=== PATIENT | male | born 1935 | race Hispanic/Latino ===

== ENCOUNTER 2017-04-29 11:02 | Inpatient (IN) | payer MEDICARE, OTHER ==
[~2017-04-29] VITALS: Ht 152.4 cm; Wt 54.2 kg
--- NOTE | 2017-04-29 12:18 | Diagnostic Imaging Report ---
PROCEDURE:CHEST SINGLE (PORTABLE) TECHNIQUE:Portable AP chest INDICATION:Weakness COMPARISON:None. FINDINGS: The lungs are clear and symmetrically inflated. No pleural effusions. Normal heart size, mediastinal contour, and pulmonary vasculature. Intact skeleton. CONCLUSION: Normal chest for patient age. Dictated by: Roverto Spencer M.D. on 04/29/2017 at 12:27 Electronically approved by: Roverto Spencer M.D. on 04/29/2017 at 12:27
--- NOTE | 2017-04-29 12:32 | Diagnostic Imaging Report ---
EXAMINATION: Head and cervical spine CT without contrast. HISTORY: Status post fall, dizziness, pain COMPARISON: None. TECHNIQUE: Multidetector axial images were obtained without contrast from the foramen magnum to the vertex and through the cervical spine. The images were reconstructed using brain and bone algorithms. Thin section brain images were reformatted into coronal and sagittal planes. HEAD CT FINDINGS: Skull: Nonspecific scattered lucencies throughout the calvarium and most likely represent vascular indentations, this likely lytic lesions, if there is clinical concern for aggressive pathology consider bone scan for hardware evaluation. Parenchyma: Normal. No mass, hemorrhage or CT evidence of acute vascular insult. Brain volume: Normal for age. Ventricles: No hydrocephalus or displacement. Arteries: No density suggestive of thrombus. Dural sinuses: No abnormal density. Extra-axial spaces: No abnormal density. Foramen magnum: No mass, Chiari malformation, or basilar invagination. Sella: No obvious mass. Paranasal/mastoid sinuses: Imaged portions unremarkable. CERVICAL SPINE CT FINDINGS: Alignment:Normal alignment and lordosis. Age indeterminate likely chronic and degenerative retrolisthesis at C5-C6, anterolisthesis at C6-C7 and C7-T1. Mild distal scoliosis. Soft tissues: Normal. Vertebrae: Normal height and density. No acute fracture, infection or neoplasm. Degenerative changes: C1-C2: Mild degenerative changes without stenosis. C2-C3: Fusion of the posterior elements on the left side. No canal or foraminal stenosis. C3-C4: Facet arthrosis minimally on the left without canal or foraminal stenoses. C4-C5: Disc osteophyte compresses formation, bilateral uncovertebral and facet arthrosis. Severe right and moderate left foraminal stenosis. Mild canal stenosis.. C5-C6: Disc ossify compress formation, prominent uncovertebral and facet arthrosis worst on the left. Moderate spinal canal stenosis. Severe left and moderately severe right foraminal stenoses.. C6-C7: Bilateral facet arthrosis. Mild foraminal stenosis mainly on the left.. C7-T1: Facet arthrosis minimally on the left with grade 1 anterolisthesis. IMPRESSION: Head CT: 1. No acute posttraumatic intracranial abnormalities, particularly no hemorrhage. 2. Nonspecific lucencies in the calvarium which may represent normal vascular indentations as described. Cervical spine CT: 1. No acute fractures or dislocations. 2. Chronic degenerative changes as detail above. Note: Acute postraumatic spinal cord, vascular or ligamentous injuries cannot adequately be assessed with CT. Signed by: Dr. Grisel Odonnell M.D. on 04/29/2017 12:29 PM
[2017-04-29 13:19] LABS: BASOPHILS % 0.1 % (0.0-1.0); EOSINOPHILS % 0.2 % (0.0-6.0); HEMATOCRIT 30.2 % (38.2-49.6); HEMOGLOBIN 9.8 g/dL (14.0-18.0); LYMPHOCYTES # (AUTO) 2.9 (1.0-3.2); LYMPHOCYTES % 17.1 % (18.0-39.1); MEAN CORPUSCULAR HGB CONC 32.5 g/dL (31-35); MEAN CORPUSCULAR VOLUME 95.6 fL (81-99); MONOCYTES # (AUTO) 1.6 (0.2-0.8); MONOCYTES % 9.5 % (4.4-11.3); NEUTROPHILS # (AUTO) 12.1 (2.1-6.9); NEUTROPHILS % 71.6 % (38.7-80.0); RED BLOOD COUNT 3.16 x10e6/uL (4.3-5.7); RED CELL DISTRIBUTION WIDTH 15.6 % (11.7-14.4)
[2017-04-29] MEDS ORDERED: PREDNISONE20 MG PO (13:22)
[2017-04-29] MEDS ORDERED: BENICAR20 MG PO (13:22)
[2017-04-29] MEDS ORDERED: METFORMIN HCL500 MG PO (13:22)
[2017-04-29] MEDS ORDERED: HYDROCHLOROTHIA25 MG PO (13:22)
[2017-04-29 13:26] LABS: PLATELET COUNT 36 x10e3/uL (140-360)
[2017-04-29 13:30] LABS: INR 0.96; PROTHROMBIN TIME 13.3 seconds (11.9-14.5)
[2017-04-29 13:31] LABS: PARTIAL THROMBOPLASTIN TIME 21.5 seconds (23.8-35.5)
[2017-04-29 13:38] LABS: ALANINE AMINOTRANSFERASE 13 IU/L (0-55); ALBUMIN 2.7 g/dL (3.5-5.0); ALBUMIN/GLOBULIN RATIO 0.9 (0.8-2.0); ALKALINE PHOSPHATASE 46 IU/L (40-150); ANION GAP 13.1 mmol/L (8-16); BLOOD UREA NITROGEN 74 mg/dL (7-26); BUN/CREATININE RATIO 76 (6-25); CALCIUM 8.3 mg/dL (8.4-10.2); CARBON DIOXIDE 21 mmol/L (22-29); CHLORIDE 109 mmol/L (98-107); CREATINE KINASE 15 IU/L (30-200); CREATININE, SERUM 0.98 mg/dL (0.72-1.25); EST GLOMERULAR FILTRATION RATE > 60 ML/MIN (60-); GLUCOSE 276 mg/dL (74-118); POTASSIUM 4.1 mmol/L (3.5-5.1); SODIUM 139 mmol/L (136-145)
[2017-04-29 13:58] LABS: THYROID STIMULATING HORMONE 2.263 uIU/mL (0.350-4.940)
[2017-04-29 14:06] LABS: LYMPHOCYTES % (MANUAL) 19 % (19-48); MONOCYTES % (MANUAL) 12 % (3.4-9.0); NEUTROPHILS % (MANUAL) 69 % (40-74)
[2017-04-29 14:09] LABS: ANISOCYTOSIS SLIGHT; HYPOCHROMASIA MODERATE; PLATELET ESTIMATE MARKEDLY DECREASED; PLATELET MORPHOLOGY COMMENT NORMAL; POIKILOCYTOSIS SLIGHT; RBC MORPHOLOGY COMMENT NORMAL
[2017-04-29] MEDS ORDERED: PANTOPRAZOLE INJ 40 MG in SODIUM CHLORIDE 0.9% 50ML 50 ML IV STA (14:24)
[2017-04-29] MEDS ORDERED: PANTOPRAZOLE 40 MG 10ML VIAL IV STA (14:24)
[2017-04-29 14:40] LABS: BILIRUBIN,URINE NEGATIVE (NEGATIVE); KETONES,URINE NEGATIVE (NEGATIVE); LEUKOCYTE ESTERASE ,URINE NEGATIVE (NEGATIVE); NITRITE,URINE NEGATIVE (NEGATIVE); PROTEIN,URINE DIPSTICK NEGATIVE (NEGATIVE); URINE UROBILINOGEN 0.2 mg/dL (0.2 - 1)
[2017-04-29 14:42] LABS: CLARITY,URINE CLEAR (CLEAR); COLOR,URINE YELLOW (YELLOW)
[2017-04-29] MEDS ORDERED: SODIUM CHLORIDE 0.9% 250ML 250 ML IV ONE ×2 (14:45→19:30)
[2017-04-29] MEDS ORDERED: PANTOPRAZOLE INJ 40 MG in SODIUM CHLORIDE 0.9% 50ML 50 ML IV SCH (14:45)
--- OUTSIDE RECORDS SUMMARY | 2017-04-29 14:51 | XMS REPORT ---
Author Author [facility] Address Unknown Phone Unavailable Care Team Providers Care Commodity Trader Name Role Phone DEONDRE CHEN Unavailable Unavailable Problems This patient has no known problems. Allergies, Adverse Reactions, Alerts This patient has no known allergies or adverse reactions. Medications This patient has no known medications. Results Test Description Test Time Test Comments Text Results Atomic Results Result Comments CHEST SINGLE (PORTABLE) [place] [address] Patient Name: JUANI HANSEN MR #: [id number] : 1935 Age/Sex: 81/M Req #: [id number] Adm Physician: Ordered by: BRADEN LUTZ [employer] SUPERVISOR Report #: [id number] Location: ER Room/Bed: Procedure: [id number] DX/CHEST SINGLE (PORTABLE) Exam Date: Exam Time: REPORT STATUS: Signed PROCEDURE: CHEST SINGLE ( PORTABLE) TECHNIQUE: Portable AP chest INDICATION: Weakness COMPARISON : None. FINDINGS: The lungs are clear and symmetrically inflated. No pleural effusions. Normal heart size, mediastinal contour, and pulmonary vasculature. Intact skeleton. CONCLUSION: Normal chest for patient age. Dictated by: Shant Spencer M.D. on 04/29/2017 at 12:27 Electronically approved by: Shant Spencer M.D. on 2017 at 12:27 Dictated By: SHANT SPENCER MD 26 Transcribed By: RENEE on 1226 COPY TO: BRADEN LUTZ [employer] SUPERVISOR CT CERVICAL SPINE WO [place] [address] Patient Name: JUANI HANSEN MR #: [id number] : 1935 Age/Sex: 81/M Req #: [id number] Adm Physician: Ordered by: BRADEN LUTZ [employer] SUPERVISOR Report #: [id number] Location: ER Room/Bed: Procedure: [id number] CT/CT CERVICAL SPINE WO Exam Date: Exam Time: REPORT STATUS: Signed EXAMINATION: Head and cervical spine CT without contrast. HISTORY: Status post fall, dizziness, pain COMPARISON: None. TECHNIQUE: Multidetector axial images were obtained without contrast from the foramen magnum to the vertex and through the cervical spine. The images were reconstructed using brain and bone algorithms. Thin section brain images were reformatted into coronal and sagittal planes. HEAD CT FINDINGS: Skull: Nonspecific scattered lucencies throughout the calvarium and most likely represent vascular indentations, this likely lytic lesions, if there is clinical concern for aggressive pathology consider bone scan for hardware evaluation. Parenchyma: Normal. No mass, hemorrhage or CT evidence of acute vascular insult. Brain volume: Normal for age. Ventricles: No hydrocephalus or displacement. Arteries: No density suggestive of thrombus. Dural sinuses: No abnormal density. Extra-axial spaces: No abnormal density. Foramen magnum : No mass, Chiari malformation, or basilar invagination. Sella: No obvious mass. Paranasal/mastoid sinuses: Imaged portions unremarkable. CERVICAL SPINE CT FINDINGS: Alignment:Normal alignment and lordosis. Age indeterminate likely chronic and degenerative retrolisthesis at C5-C6, anterolisthesis at C6-C7 and C7-T1. Mild distal scoliosis. Soft tissues: Normal. Vertebrae: Normal height and density. No acute fracture , infection or neoplasm. Degenerative changes: C1-C2: Mild degenerative changes without stenosis. C2-C3: Fusion of the posterior elements on the left side. No canal or foraminal stenosis. C3-C4: Facet arthrosis minimally on the left without canal or foraminal stenoses. C4- C5: Disc osteophyte compresses formation, bilateral uncovertebral and facet arthrosis. Severe right and moderate left foraminal stenosis. Mild canal stenosis.. C5-C6: Disc ossify compress formation, prominent uncovertebral and facet arthrosis worst on the left. Moderate spinal canal stenosis. Severe left and moderately severe right foraminal stenoses.. C6-C7: Bilateral facet arthrosis. Mild foraminal stenosis mainly on the left.. C7-T1: Facet arthrosis minimally on the left with grade 1 anterolisthesis. IMPRESSION: Head CT: 1. No acute posttraumatic intracranial abnormalities, particularly no hemorrhage. 2. Nonspecific lucencies in the calvarium which may represent normal vascular indentations as described. Cervical spine CT: 1. No acute fractures or dislocations. 2. Chronic degenerative changes as detail above. Note: Acute postraumatic spinal cord, vascular or ligamentous injuries cannot adequately be assessed with CT. Signed by: Dr. Cindy Odonnell M.D. on 04/29/2017 12:29 PM Dictated By: CINDY ODONNELL MD 1229 Transcribed By: GILBERTO on 04/29/17 1229 COPY TO: BRADEN LUTZ NP CT BRAIN [place] [address] Patient Name: JUANI HANSEN MR #: [id number] : 1935 Age/Sex: 81/M Req #: [id number] Adm Physician: Ordered by: BRADEN LUTZ NP Report #: [id number] Location: Room/Bed: Procedure: [id number] CT/CT BRAIN WO Exam Date: Exam Time: REPORT STATUS: Signed EXAMINATION: Head and cervical spine CT without contrast. HISTORY: Status post fall, dizziness, pain COMPARISON: None. TECHNIQUE: Multidetector axial images were obtained without contrast from the foramen magnum to the vertex and through the cervical spine. The images were reconstructed using brain and bone algorithms. Thin section brain images were reformatted into coronal and sagittal planes. HEAD CT FINDINGS: Skull: Nonspecific scattered lucencies throughout the calvarium and most likely represent vascular indentations, this likely lytic lesions, if there is clinical concern for aggressive pathology consider bone scan for hardware evaluation. Parenchyma: Normal. No mass, hemorrhage or CT evidence of acute vascular insult. Brain volume: Normal for age. Ventricles: No hydrocephalus or displacement. Arteries: No density suggestive of thrombus. Dural sinuses: No abnormal density. Extra-axial spaces: No abnormal density. Foramen magnum : No mass, Chiari malformation, or basilar invagination. Sella: No obvious mass. Paranasal/mastoid sinuses: Imaged portions unremarkable. CERVICAL SPINE CT FINDINGS: Alignment:Normal alignment and lordosis. Age indeterminate likely chronic and degenerative retrolisthesis at C5-C6, anterolisthesis at C6-C7 and C7-T1. Mild distal scoliosis. Soft tissues: Normal. Vertebrae: Normal height and density. No acute fracture , infection or neoplasm. Degenerative changes: C1-C2: Mild degenerative changes without stenosis. C2-C3: Fusion of the posterior elements on the left side. No canal or foraminal stenosis. C3-C4: Facet arthrosis minimally on the left without canal or foraminal stenoses. C4- C5: Disc osteophyte compresses formation, bilateral uncovertebral and facet arthrosis. Severe right and moderate left foraminal stenosis. Mild canal stenosis.. C5-C6: Disc ossify compress formation, prominent uncovertebral and facet arthrosis worst on the left. Moderate spinal canal stenosis. Severe left and moderately severe right foraminal stenoses.. C6-C7: Bilateral facet arthrosis. Mild foraminal stenosis mainly on the left.. C7-T1: Facet arthrosis minimally on the left with grade 1 anterolisthesis.
[2017-04-29 14:54] LABS: EPITHELIAL CELLS,URINE FEW /LPF
[2017-04-29] MEDS: SODIUM CHLORIDE 0.9% 1000ML 1,000 ML IV SCH ×2 (15:40→22:53)
[2017-04-29] MEDS ORDERED: ONDANSETRON HCL INJ 2 MG/ML VIAL IV PRN (15:45)
[2017-04-29] MEDS ORDERED: ACETAMINOPHEN 650 MG SUPP PR PRN (15:45)
[2017-04-29] MEDS: PANTOPRAZOL 40MG/SOD CHL 0.9% 50 ML IV SCH ×2 (15:45→20:08)
[2017-04-29] MEDS ORDERED: DEXTROSE 50% SYRINGE 50 ML IV PRN (15:45)
[2017-04-29 15:51] LABS: % IRON SATURATION 76 % (15-50); IRON 182 ug/dL (65-175); TOTAL IRON BINDING CAPACITY 238 ug/dL (261-478); TRANSFERRIN 170 mg/dL (174-364)
[2017-04-29] MEDS ORDERED: METHYLPREDNISOLONE SOD SUCC 125 MG/2ML VIAL IV SCH (16:00)
--- NOTE | 2017-04-29 17:26 | Consultation ---
DATE OF CONSULTATION: April 29, 2017 GASTROENTEROLOGY CONSULTATION REFERRING PHYSICIAN: Dr. Simon REASON FOR CONSULTATION: Melena/GI bleed. HISTORY OF PRESENT ILLNESS: Mr. 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 He has been on steroids. He felt very weak starting yesterday. He was brought in by his daughter. Here in the ER, he was noted to have melena with also anemia and thrombocytopenia. Hemoglobin was 9.8. Platelets were 36. FOBT was positive. He denies any dysphagia, odynophagia, nausea, vomiting, hematemesis, epistaxis, hematuria, although he also has not noted any bloody stools or melenic stools. He does appear to be lethargic and weak. He does not report any recent endoscopy. PAST MEDICAL HISTORY 1. ITP. 2. Steroid-induced diabetes. 3. Hypertension. SURGICAL HISTORY: Splenectomy. MEDICATION AND ALLERGIES: Reviewed, please see MAR medication reconciliation form. SOCIAL HISTORY: No alcohol, tobacco or illicit substance. FAMILY HISTORY: Reviewed, noncontributory. REVIEW OF SYSTEMS: Unable to obtain due to patient's general medical status. PHYSICAL EXAMINATION GENERAL: He is awake, responsive, in no acute distress. HEENT: Pupils are equal, round and reactive to light. NECK: Supple. LUNGS: Clear. CARDIAC: S1 and S2. ABDOMEN: Soft. Nontender, nondistended. Normal bowel sounds. EXTREMITIES: No clubbing or cyanosis. PSYCH: Calm. NEUROLOGIC: Awake, alert, lethargic. HEM-ONC: No large areas of ecchymosis. No rash. No lymphadenopathy. Electronic health records reviewed for laboratory and radiologic studies as well as history. ASSESSMENT 1. Concern for acute gastrointestinal bleed with melena. 2. Anemia. Concern for acute blood loss anemia. 3. Idiopathic thrombocytopenic purpura with platelets of only 36 currently. 4. Leukocytosis. PLAN: At the current time, will defer infectious workup to primary. Will plan for upper endoscopy. He will need to be transfused first, and platelets are pending. Will likely do the upper endoscopy in the morning as he is scheduled for 7:30. In the meantime, we will monitor hemoglobin and hematocrit. I recommend transfusing as needed. Ideally, platelets need to be over 50. He will continue n.p.o. status and be on a Protonix drip. Risks, benefits and alternatives of endoscopic plan were discussed with the patient's daughter at the bedside, and they are in agreement. Thank you very much for asking me to see Mr. Aguilera. Any questions or concerns, please do not hesitate to contact me. Job#: [id number] [facility]
[2017-04-29] MEDS: INSULIN LISPRO 100 UNIT/1 ML 3ML VIAL SQ SCH ×2 (18:16→22:33)
[2017-04-29 18:35] LABS: HEMATOCRIT 17.4 % (38.2-49.6)
[2017-04-29 18:38] LABS: HEMOGLOBIN 5.4 g/dL (14.0-18.0)
[2017-04-29 23:16] LABS: CREATINE KINASE MB 1.3 ng/mL (0.00-5.00)
[2017-04-30] MEDS: PANTOPRAZOL 40MG/SOD CHL 0.9% 50 ML IV SCH ×2 (01:25→06:19)
[2017-04-30 04:46] LABS: BASOPHILS % 0.1 % (0.0-1.0); HEMATOCRIT 32.8 % (38.2-49.6); HEMOGLOBIN 11.2 g/dL (14.0-18.0); LYMPHOCYTES # (AUTO) 0.8 (1.0-3.2); LYMPHOCYTES % 3.6 % (18.0-39.1); MEAN CORPUSCULAR HEMOGLOBIN 30.4 pg (28-32); MEAN CORPUSCULAR HGB CONC 34.1 g/dL (31-35); MEAN CORPUSCULAR VOLUME 89.1 fL (81-99); MONOCYTES # (AUTO) 0.2 (0.2-0.8); MONOCYTES % 0.8 % (4.4-11.3); NEUTROPHILS % 94.7 % (38.7-80.0); RED BLOOD COUNT 3.68 x10e6/uL (4.3-5.7); RED CELL DISTRIBUTION WIDTH 15.9 % (11.7-14.4)
[2017-04-30 04:53] LABS: PLATELET COUNT 46 x10e3/uL (140-360)
[2017-04-30 05:05] LABS: ANION GAP 11.9 mmol/L (8-16); BLOOD UREA NITROGEN 41 mg/dL (7-26); BUN/CREATININE RATIO 45 (6-25); CALCIUM 8.1 mg/dL (8.4-10.2); CARBON DIOXIDE 19 mmol/L (22-29); CHLORIDE 115 mmol/L (98-107); CREATINE KINASE 14 IU/L (30-200); CREATININE, SERUM 0.91 mg/dL (0.72-1.25); EST GLOMERULAR FILTRATION RATE > 60 ML/MIN (60-); GLUCOSE 239 mg/dL (74-118); POTASSIUM 3.9 mmol/L (3.5-5.1); SODIUM 142 mmol/L (136-145)
[2017-04-30] MEDS: INSULIN LISPRO 100 UNIT/1 ML 3ML VIAL SQ SCH ×4 (07:30→22:16)
[2017-04-30] MEDS ORDERED: PEG (High)/E-LYTE SOLN 4,000 ML BTL PO ONE ×2 (08:30→20:45)
[2017-04-30] MEDS: PANTOPRAZOLE 40 MG 10ML VIAL IV SCH ×2 (09:15→17:35)
[2017-04-30] MEDS ORDERED: SODIUM CHLORIDE 0.9% 250ML 250 ML ONE ×2 (09:35→10:38)
[2017-04-30 14:20] VITALS: BP 166/83
[2017-04-30 14:29] VITALS: BP 166/83
[2017-04-30] MEDS ORDERED: PROPOFOL IV EMULSION 10 MG/ML 50 ML VIAL ONE (15:10)
[2017-04-30 16:15] VITALS: BP 142/75
[2017-04-30] MEDS ORDERED: METHYLPREDNISOLONE SOD SUCC 125 MG/2ML VIAL IV SCH (17:00)
[2017-04-30] MEDS ORDERED: FENTANYL CITRATE/PF 100MCG/2 ML INJ ONE (17:21)
[2017-04-30 20:05] VITALS: BP 146/75
[2017-05-01] VITALS: BP 171/75
[2017-05-01 00:12] VITALS: BP 146/75
[2017-05-01 04:00] VITALS: BP 186/82
[2017-05-01 05:25] VITALS: BP 150/80
[2017-05-01 07:18] LABS: BASOPHILS % 0.1 % (0.0-1.0); HEMATOCRIT 37.3 % (38.2-49.6); HEMOGLOBIN 12.3 g/dL (14.0-18.0); LYMPHOCYTES # (AUTO) 1.9 (1.0-3.2); LYMPHOCYTES % 11.1 % (18.0-39.1); MEAN CORPUSCULAR HEMOGLOBIN 29.9 pg (28-32); MEAN CORPUSCULAR VOLUME 90.8 fL (81-99); MONOCYTES % 5.8 % (4.4-11.3); NEUTROPHILS # (AUTO) 14.5 (2.1-6.9); NEUTROPHILS % 82.3 % (38.7-80.0); PLATELET COUNT 100 x10e3/uL (140-360); RED BLOOD COUNT 4.11 x10e6/uL (4.3-5.7); RED CELL DISTRIBUTION WIDTH 16.4 % (11.7-14.4)
[2017-05-01] MEDS: INSULIN LISPRO 100 UNIT/1 ML 3ML VIAL SQ SCH ×2 (07:30→11:34)
[2017-05-01 07:40] LABS: ANION GAP 13.2 mmol/L (8-16); BLOOD UREA NITROGEN 25 mg/dL (7-26); BUN/CREATININE RATIO 26 (6-25); CALCIUM 8.7 mg/dL (8.4-10.2); CARBON DIOXIDE 21 mmol/L (22-29); CHLORIDE 111 mmol/L (98-107); CREATININE, SERUM 0.96 mg/dL (0.72-1.25); EST GLOMERULAR FILTRATION RATE > 60 ML/MIN (60-); GLUCOSE 197 mg/dL (74-118); POTASSIUM 4.2 mmol/L (3.5-5.1); SODIUM 141 mmol/L (136-145)
[2017-05-01 08:50] VITALS: BP 155/83
[2017-05-01] MEDS: PANTOPRAZOLE 40 MG 10ML VIAL IV SCH (09:18)
[2017-05-01] MEDS ORDERED: LOSARTAN POTASSIUM 100 MG TAB PO SCH (10:45)
[2017-05-01] MEDS ORDERED: PREDNISONE20 MG PO (11:42)
[2017-05-01] MEDS ORDERED: PANTOPRAZOLE SO40 MG PO (11:42)
--- NOTE | 2017-05-01 11:51 | Discharge Summary ---
FINAL DIAGNOSIS: Acute blood loss anemia, presumed to be due to gastrointestinal source. SECONDARY DIAGNOSES 1. Idiopathic thrombocytopenic purpura with worsening thrombocytopenia. 2. Syncope due to acute blood loss anemia. 3. Leukocytosis due to steroids. 4. Metabolic acidosis, resolved. AIRFRAME AND POWERPLANT MECHANIC: Dr. Cedillo, GI. PROCEDURES AND STUDIES PERFORMED: EGD and colonoscopy. Head CT and C-spine CT did not show any acute disease. HISTORY: Per [facility] HOSPITAL COURSE: Patient was admitted. He received 2 units of platelet transfusion due to presumed active bleeding. After hydration, his hemoglobin went down to 5. He received 2 units of packed red blood cells. At the time of discharge, his hemoglobin is 12. Currently, patient is doing well. I have discussed over to phone with his blood bank laboratory professional, who knows him well, her name is Dr. Cierra Darling. We increased his steroids to 60 mg. At the time of discharge, his platelet count went up 100. Patient will go home to continue prednisone 60 mg daily and Protonix as well since we did find esophagitis and gastritis on his EGD. His colonoscopy was benign. Patient will follow up with Dr. Darling. CONDITION ON DISCHARGE: Stable. DISCHARGE MEDICATIONS: Please see medication reconciliation form. I took 32 minutes total to discharge this patient. HUGO CHÁVEZ M.D. Job#: [id number] [facility]
[2017-05-01 11:58] VITALS: BP 137/74
[2017-05-01] MEDS ORDERED: LIDOCAINE HCL 2% LOCAL INJ 5 ML SDV VIAL INJ ONE (17:42)
[2017-05-01] MEDS ORDERED: PROPOFOL IV EMULSION 10 MG/ML 20 ML VIAL ONE (17:42)
== END 2017-05-01 12:43 | disposition home or self-care (01) | DRG 378 ==
LOC: ER 11:02 → ERHOLD 14:48 → UNDOADMIN 14:48 → OR 04-30 07:03 → ERHOLD 04-30 07:38 → MED/SURG3 04-30 14:18
PROVIDERS: ADMIT Internal Medicine; ATTEND Internal Medicine
PROC: 30233R1 Transfusion of Nonautologous Platelets into Peripheral Vein, Percutaneous Approach (ICD-10-PCS; principal; 2017-04-29)
PROC: 30233N1 Transfusion of Nonautologous Red Blood Cells into Peripheral Vein, Percutaneous Approach (ICD-10-PCS; 2017-04-29)
PROC: 0DJ08ZZ Inspection of Upper Intestinal Tract, Via Natural or Artificial Opening Endoscopic (ICD-10-PCS; 2017-04-30)
PROC: 0DBK8ZZ Excision of Ascending Colon, Via Natural or Artificial Opening Endoscopic (ICD-10-PCS; 2017-05-01)
DX: K92.1 Melena (principal); D69.3 Immune thrombocytopenic purpura; E87.2 Acidosis; E09.9 Drug or chemical induced diabetes mellitus without complications; D62 Acute posthemorrhagic anemia; R55 Syncope and collapse; T38.0X5A Adverse effect of glucocorticoids and synthetic analogues, initial encounter; I10 Essential (primary) hypertension; Z90.81 Acquired absence of spleen; K29.70 Gastritis, unspecified, without bleeding; K21.0 Gastro-esophageal reflux disease with esophagitis; K44.9 Diaphragmatic hernia without obstruction or gangrene; K63.5 Polyp of colon; K57.30 Diverticulosis of large intestine without perforation or abscess without bleeding; K64.4 Residual hemorrhoidal skin tags; K64.8 Other hemorrhoids
CPT/HCPCS: 36415; 36430; 43235; 45384; 70450; 71045; 72125; 80048; 80053; 81001; 82550; 82553; 82948; 83540; 83880; 84443; 84466; 84484; 85014; 85018; 85025; 85610; 85730; 86677; 86850; 86900; 86920; 87086; 87186; 88305; 93005; 97139; 99285; J2001; J2930; J7030; J7050; P9016; P9034